=== PATIENT | male | born 1965 | race Caucasian/White ===

== ENCOUNTER → 2017-01-28 | Outpatient (CLI) | payer OTHER ==
--- NOTE | 2017-01-29 23:48 | MR ---
EXAMINATION TYPE: MR shoulder RT wo con DATE OF EXAM: 01/28/2017 COMPARISON: Outside radiographs 01/10/2017 HISTORY: 51-year-old male with right shoulder pain TECHNIQUE: Multiplanar, multisequence imaging of the right shoulder is performed without contrast. FINDINGS: Long head biceps tendon remains appropriately situated along the bicipital groove. There is some inte rmediate signal within the intracapsular portion of the tendon that could represent tendinosis or int erstitial tearing. There is an intrasubstance tear of the inferior half of the subscapularis tendon measuring approximat jesus 1 cm craniocaudal and 7 mm long which may extend to contact the bursal surface. The majority of t he subscapularis tendon remains intact. Moderate to severe degenerative joint space narrowing with marginal spurring and capsular hypertrophy at the acromioclavicular joint with mass effect onto the underlying myotendinous junction of the sup raspinatus. Heterogeneous signal throughout the supraspinatus and infraspinatus tendons. There appears to be a shallow tear of the infraspinatus tendon more proximally at the myotendinous ju nction extending medially from front to back approximately 1.1 cm long and 1.4 cm AP. There is bursal sided fraying of the supraspinatus tendon and trace fluid within the subacromial/subd eltoid bursa. No high-grade partial or full-thickness tear seen of the supraspinatus or infraspinatus tendons. No atrophy of the rotator cuff musculature. Evaluation of the glenohumeral joint shows irregular intrasubstance signal extending into the superio r labrum at and behind the biceps anchor. There is a 7 mm paralabral cyst along the posterior superio r quadrant with tear extending back to the superior aspect of the posterior labrum. No significant walter int effusion. There is no Hill-Sachs deformity or os acromiale. No suspicious bone marrow replacement . IMPRESSION: 1. Diffuse rotator cuff tendinosis. There is bursal sided fraying of the supraspinatus tendon, a shal low 1.4 cm bursal sided tear extending medially from front to back at the myotendinous junction of th e infraspinatus tendon, and an intrasubstance tear of the inferior half of the subscapularis tendon w hich probably has some bursal sided extension. 2. No high-grade partial or full-thickness rotator cuff tear seen of either supraspinatus or infraspi natus tendons. 3. Severe AC joint OA with mass effect onto the underlying cuff. Findings suggest subacromial impinge ment. 4. SLAP tear extending to the superior third aspect of the posterior labrum. Associated 7 mm paralabr al cyst.
== END | disposition home or self-care (01) ==
LOC: RADMRIMAIN 07:18
PROVIDERS: ATTEND Orthopaedic Surgery
DX: M75.101 Unspecified rotator cuff tear or rupture of right shoulder, not specified as traumatic (principal); S46.811A Strain of other muscles, fascia and tendons at shoulder and upper arm level, right arm, initial encounter; M19.011 Primary osteoarthritis, right shoulder; S43.431A Superior glenoid labrum lesion of right shoulder, initial encounter

== ENCOUNTER 2024-08-19 07:11 | Day surgery (SDC) | payer OTHER ==
[2024-08-18 12:26] VITALS: BMI 26.4
[2024-08-19] MEDS ORDERED: LIDOCAINE 1% (10MG/ML) FOR IV START INTRADERMA PRN (07:35)
[2024-08-19 07:45] VITALS: TEMP 97.4
[2024-08-19 07:57] LABS: Glucose,Whole Blood 109 mg/dL (70-110)
[2024-08-19] MEDS: LACTATED RINGERS 1,000 ML IV SCH (07:58)
[2024-08-19] MEDS: IV FLUID CONTINUATION 1,000 ML IV ONE (07:58)
[2024-08-19] MEDS ORDERED: PROPOFOL 10 MG/ML 20 ML VIAL IV ONE (08:24)
[2024-08-19] MEDS ORDERED: LIDOCAINE 1% INJ 10MG/ML (20 ML MDV) ONE (08:24)
--- NOTE | 2024-08-19 08:43 | P.PCN ---
Date of Procedure: 08/19/24 Preoperative Diagnosis: Screening Postoperative Diagnosis: Hepatic flexure polyp Transverse colon polyp Procedure(s) Performed: Colonoscopy with forcep polypectomy Anesthesia: MAC Surgeon: Nany Pineda Pathology: other (Hepatic flexure polyp, Transverse colon) Condition: stable Disposition: same day Indications for Procedure: 59-year-old male presents today for screening colonoscopy. He has family history of colon polyps. Denies any blood in his stool. Risks, benefits and alternatives were provided to the patient. All questions answered prior to attending endoscopy suite Operative Findings: Hepatic flexure polyp Transverse colon Description of Procedure: The patient was brought to the endoscopy suite and placed in left lateral decubitus position and adequate sedation was achieved using conscious sedation. Digital rectal exam was performed and mild internal hemorrhoids were palpated. An endoscope was then placed in the rectum and advanced to the cecum as identified by landmarks including the appendiceal orifice and the ileocecal valve. The prep was good. The colonoscope was then slowly withdrawn, examining for any mucosal abnormalities. The cecum, ascending, transverse, descending and sigmoid colon were visualized adequately. There were no large neoplastic lesions noted throughout the colon. No obvious diverticulosis. 2 small polyps were encountered. The first was noted at the hepatic flexure. This was removed with forcep polypectomy and hemostasis was maintained. The second was noted in the transverse colon. This was also removed with forcep polypectomy. Hemostasis was maintained. Retroflexion was performed in the rectum and internal hemorrhoid. Excess air was removed, the colonoscope withdrawn and the procedure terminated. The patient was then transferred to the recovery unit in stable condition. Repeat colonoscopy should be performed in 5 years.
[2024-08-19 09:05] VITALS: BP 150/83; PULSE 58; RESP 16
== END 2024-08-19 09:53 | disposition home or self-care (01) ==
LOC: ORWHC2ENDO 07:11
PROVIDERS: ATTEND Surgery
DX: Z12.11 Encounter for screening for malignant neoplasm of colon (principal); K63.5 Polyp of colon
CPT/HCPCS: 88305; 45380; J2003; J2704